=== PATIENT | female | born 2005 | race Two or more races ===

== ENCOUNTER → 2025-02-12 | Outpatient (CLI) | payer MEDICAID, SELFPAY ==
--- NOTE | 2025-02-12 09:30 | XR_ITS ---
Examination: Abdomen sonogram, complete Date and time of exam: February 12, 2025, 0944 hours INDICATIONS: Elevated liver function tests on laboratory examination December 2024. Technique: Multiple real-time grayscale transabdominal sonographic images of the abdomen have been obtained. Findings: Normal gallbladder. Normal common bile duct 0.2 cm Pancreatic head 2.8 cm Aorta not enlarged. Liver 16.7 cm fatty infiltration Normal hepatopetal portal venous flow Patent IVC Right kidney 10.4 cm renal cortex 2.7 cm Left kidney 11.1 cm renal cortex 2.6 cm No hydronephrosis Spleen 10.0 cm IMPRESSION: Normal gallbladder Mild hepatomegaly fatty infiltration
== END | disposition home or self-care (01) ==
PROVIDERS: Referring Provider Nurse Practitioner Family; Visit Provider Nurse Practitioner Family
DX: K76.0 Fatty (change of) liver, not elsewhere classified (principal)
CPT/HCPCS: 76700